=== PATIENT | male | born 1965 | race Caucasian/White ===

== ENCOUNTER → 2021-10-02 14:04 | Outpatient (CLI) | payer BC, SELFPAY ==
--- NOTE | ~2021-10-02 | CT_ITS ---
EXAMINATION: CT abdomen pelvis wo con DATE: 10/02/2021 14:26 INDICATION: Incisional hernia without obstruction without gangrene. TECHNIQUE: Computed tomography (CT) of the abdomen and pelvis was performed without intravenous contr ast. Automated exposure control and iterative reconstruction technique were employed. The dose-length product was 1160.10 mGy-cm. COMPARISON: CT abdomen 02/07/2009 FINDINGS: The visualized portions of the lung bases demonstrate mild atelectasis. No pleural effusion . A calcified left lung nodule is consistent with old granulomatous disease. The heart size is normal . No pericardial effusion. There are changes of fundoplication of the stomach with the wrap above the diaphragm. The liver, gallbladder, spleen, pancreas, and adrenal glands are normal. There are cysts in right kidney including peripelvic cysts measuring up to 4.9 cm. There is severe atrophy of left ki dney. There is severe left hydronephrosis with transition point at the ureteropelvic junction. There are no dilated loops of bowel. The appendix is normal. There are changes of mesh ventral hernia repai r. There is trace fluid adjacent to the mesh. There is a 2.4 x 1.5 cm subcutaneous fluid collection i n the right abdomen superior to the umbilicus, likely a seroma. There are no pathologically enlarged lymph nodes. There is no free intraperitoneal fluid. There are bilateral inguinal hernias containing fat. There are benign bone islands in the pelvis. There is mild thoracolumbar spondylosis. There is m ild chronic anterior wedging of multiple vertebral bodies. IMPRESSION: 1. Changes of fundoplication of the stomach with the wrap above the diaphragm. 2. Bilateral inguinal hernias containing fat. Reviewed, dictated and finalized at location A. TING CODER
== END ==
PROVIDERS: PCP Family Medicine; Visit Provider Surgery
DX: K43.0 Incisional hernia with obstruction, without gangrene (principal); K40.20 Bilateral inguinal hernia, without obstruction or gangrene, not specified as recurrent
CPT/HCPCS: 74176

== ENCOUNTER 2021-11-13 14:48 | Outpatient (CLI) | payer BC, SELFPAY ==
--- NOTE | ~2021-11-13 | MR_ITS ---
EXAMINATION: MR foot LT wo con DATE: 11/13/2021 15:53 INDICATION: Left foot pain. TECHNIQUE: Magnetic resonance imaging (MRI) of the left foot was performed without intravenous contra st. Sequences included sagittal T1-weighted FSE and STIR FSE, long-axis PD-weighted FS FSE and PD-winnie ghted FSE, and short-axis PD-weighted FS FSE and T1-weighted FSE. COMPARISON: None FINDINGS: Bone alignment is normal. No fracture. There is edema-like marrow signal intensity in base of fifth metatarsal, consistent with stress reaction. A skin marker overlies this area. There is mild osteoarthritis of many joints in the midfoot and hindfoot. There is severe osteoarthritis of medial naviculocuneiform joint and moderate osteoarthritis of talonavicular joint and second tarsometatarsal joint. There is thickening of the central band of the plantar fascia with an enthesophyte at the kaylynn caneal attachment, consistent with fasciitis. There is no joint effusion. There are changes of prior lateral ankle sprain including partial tear of the anterior talofibular ligament. There is increased signal in distal peroneus brevis tendon, consistent with tendinopathy. There is subcutaneous edema gandhi perficial to the peroneal tendons near the lateral malleolus. The medial and anterior ankle tendons a re normal. The muscle bellies are normal. IMPRESSION: 1. Stress reaction involving base of fifth metatarsal. Distal peroneus brevis tendinopathy. 2. Polyarticular osteoarthritis. 3. Plantar fasciitis. Reviewed, dictated and finalized at location B. [employer]ACILITY EXAMINER IMPRESSION: 1. Stress reaction involving base of fifth metatarsal. Distal peroneus brevis t endinopathy. 2. Polyarticular osteoarthritis. 3. Plantar fasciitis.
== END 2021-11-13 14:49 | disposition home or self-care (01) ==
PROVIDERS: PCP Family Medicine; Visit Provider Pediatrics
DX: M72.2 Plantar fascial fibromatosis (principal); M19.072 Primary osteoarthritis, left ankle and foot
CPT/HCPCS: 73718

== ENCOUNTER → 2022-01-10 00:28 | Outpatient (CLI) | payer BC, SELFPAY ==
[2022-01-10 11:14] LABS: SARS-CoV-2 RNA PCR Negative
== END ==
PROVIDERS: PCP Family Medicine; Visit Provider Surgery
DX: Z01.812 Encounter for preprocedural laboratory examination (principal); Z20.822 Contact with and (suspected) exposure to COVID-19
CPT/HCPCS: C9803; U0003; U0005

== ENCOUNTER 2022-01-10 10:23 | Outpatient (CLI) | payer BC, SELFPAY ==
[2022-01-10 11:10] LABS: Anion Gap 10 mmol/L (8-16); Blood Urea Nitrogen 30 mg/dL (9-20); Calcium 8.6 mg/dL (8.4-10.2); Carbon Dioxide 22 mmol/L (22-30); Chloride 104 mmol/L (98-107); Estimated Glomerular Filt Rate 57; Glucose 331 mg/dL (65-110); Potassium 4.2 mmol/L (3.4-5.0); Sodium 136 mmol/L (137-145)
== END 2022-01-10 10:24 | disposition home or self-care (01) ==
LOC: ANHSURGERY 10:26
PROVIDERS: Anesthesiology; PCP Family Medicine; Visit Provider Surgery
DX: E11.9 Type 2 diabetes mellitus without complications (principal); Z01.818 Encounter for other preprocedural examination
CPT/HCPCS: 36415; 80048

== ENCOUNTER 2022-01-12 02:31 | Day surgery (SDC) | payer BC, SELFPAY ==
[2022-01-09 12:19] VITALS: BMI 34.2
--- NOTE | 2022-01-09 12:27 | PC.NURSE ---
Report to the Outpatient Waiting Room, entrance under the green pavilion located off [facility], at time 6:00 on date 01/12/22. OR Time: 7:30. - You and your visitor will be asked a series of questions to screen for COVID 19 for your protection. - A mask is required within the hospital. One visitor will be allowed to accompany the patient into the hospital. Patients visitor will be instructed to remain with patient at all times or leave the building. We will allow the visitor to come back to the postoperative area when patient is ready. Preoperative COVID Testing Requirements: COVID TEST 01/10 AT 8:30 No COVID Test needed if: (proof is required; if not received patient will have Rapid Test prior to entry) - Patient has received COVID Vaccine at least 14 days prior to procedure date or - Patient has positive COVID test result within last 90 days of surgery date. COVID Test needed if above criteria is not met If not COVID vaccinated a COVID test must be conducted within 72 hours of surgery and patient is asked to isolate self from time of testing until procedure. You will go to the [facility] for your COVID testing. The [facility] site is located at the corner of [address] [facility]. You will only be called if COVID results are positive and your surgeon may reschedule your elective surgery date. Patients may have clear liquids (water, carbonated beverages, clear teas, apple juice) until 3 hours prior to surgery (4:30) with a maximum of 20 ounces. - No food from midnight until time of surgery Take the following medications with a SIP of water the morning of surgery: NONE Medications to discontinue per physician: N/A Date to take last dose: N/A Please no make-up, nail vietnamese, hairspray, perfume, deodorant, or body powder the day of surgery. No jewelry (including any body piercings) or valuables the day of surgery, leave them at home. Please take a shower or bath the night before, or the morning of, surgery with an antibacterial soap. Wear comfortable, loose fitting clothing. - Jewelry must be removed prior to entering the operating room. Rings and piercings that are not removed may be cut off. - The hospital will not accept responsibility for valuables. - Please leave all valuables, including medications, at home the day of surgery. If you are going home after surgery, a licensed regional company flatbed truck driver must drive you home. - NO public transportation without another adult. - We recommend that an adult stay with you for 24 hours following discharge. - We also recommend that you do not drive, make important decision, drink alcoholic beverages, or take any drugs that were not prescribed by your health care provider for at least 24 hours after your discharge time. Follow any additional instructions given to you from your surgeon. Telephone instructions given to BARBARA KING and asked if any additional questions and then verbalized understanding. Patient advised to call surgeon office or pre surgery nurse liaison [phone] if any additional questions.
--- NOTE | 2022-01-11 13:14 | WPDANESEPPF ---
Anes - Initial Pre Proc Eval Procedure: Operation Date: 01/12/22 10:00 Proposed Procedures p Excision of Skin Cyst Left Elbow - Dov Eaton MD Date/Time: 01/11/22 13:14 Surgeon: Dov Eaton MD Pre Op Diagnosis: skin cyst left elbow Patient Data Age: 56 Gender: M Height: 1.85 m Weight: 117.93 kg Allergies Allergy/AdvReac Type Severity Reaction Status Date / Time ibuprofen Allergy Intermediate Swelling, Verified 01/12/22 08:16 Hives Home Medications Medication Instructions Recorded Confirmed Type atorvastatin 40 mg tablet 40 mg PO HS 09/12/21 01/12/22 History dapagliflozin 5 mg tablet 5 mg PO HS 09/12/21 01/12/22 History lisinopril 10 mg tablet 10 mg PO HS 09/12/21 01/12/22 History semaglutide 14 mg tablet 14 mg PO DAILY 09/12/21 01/12/22 History Patient hx anesthesia problems: none Family hx anesthesia problems: none Results Review: All pre-operative results and documents have been reviewed as part of the pre-operative evaluation. [facility] Past Medical History Medical History (Updated 01/11/22 @ 13:14 by Hansel Victoria DO) Diabetes High cholesterol Hypertension MILVIA (obstructive sleep apnea) Surgical History Surgical History H/O colonoscopy H/O hernia repair Hiatal H/O shoulder surgery Family History Family History Father Family history of diabetes mellitus in first degree relative Family history of heart disease in male family member before age 55 Mother Family history of diabetes mellitus in first degree relative Family history of heart disease in male family member before age 55 Social History Social History Smoking status: Never smoker Alcohol intake: current Drinks per week: 5 Substance use: never Substance use type: does not use Living arrangements: with family Additional occupation/education comments: [employer] Gender identity (if verbalized by the patient): Male Spiritual care concerns: No Anes - Eval Final PreProcedure Day of Procedure 01/11/22 13:14 Patient weight: obese Heart: regular rate and rhythm Lungs: clear to auscultation and normal air movement Airway: Mallampati scale class II Neurological: alert and oriented Last oral intake: >/= 8 hours ASA classification: III Emergent: no Anesthetic plan: proceed Anesthesia type and monitoring: general GIVS and standard monitoring Results Review: All pre-operative results and documents have been reviewed as part of the pre-operative evaluation. Informed Consent: The patient's anesthetic plan and its attendant risks and benefits were discussed with the patient/family/POA. Questions were solicited and answers provided to the satisfaction of the patient/family/POA.
[2022-01-12] MEDS: LACTATED RINGERS 1,000 ML 30 ML IV CONT (08:39)
[2022-01-12 08:43] VITALS: BP 128/77; PULSE 60; RESP 16; TEMP 36.6; O2SAT 97
[2022-01-12 08:44] LABS: Glucose Point of Care 185 mg/dl (65-105)
--- NOTE | 2022-01-12 09:59 | WPDHPUPDATE1 ---
History and Physical Update Update Date/Time: 01/12/22 09:59 History and Physical has been reviewed, including an updated exam of the patient. There are NO changes in the patient's condition. Risks, benefits, and alternatives have been discussed and questions answered. Patient agrees to proceed with procedure.
[2022-01-12] MEDS: BUPIVACAINE/EPINEPHRINE 0.25% 50 ML VIAL 20 ML INFILTRATE (10:28)
[2022-01-12 10:50] VITALS: BP 96/57; PULSE 60; RESP 16; O2SAT 95
--- NOTE | 2022-01-12 11:01 | W.PM.PROC2 ---
Procedure Note - Detailed Date of Procedure 01/12/22 Pre-op Diagnosis skin cyst left elbow Post-op Diagnosis Same Procedure Performed Excision 1.5 cm cyst of left forearm with 1 mm margins, 1.7 cm excision. Layered 5 cm closure. Surgeon Dov Eaton MD Operating Engineer Nickolas RICKS Anesthesia MAC and Local (0.25% Marcaine with epinephrine) Indications Patient has a subcutaneous nodule consistent with a skin cyst on his left forearm very close to his elbow. It is on the dorsal aspect of the arm. It has been symptomatic particularly problematic when he bumps the arm. He is taken to surgery now for excision. Findings Consistent with skin cyst. Cyst was not entered. Description of Procedure Patient was checked in the preoperative holding area. The proposed transversely oriented excision or ellipse was drawn on the skin. He was then taken to surgery. The left forearm elbow and distal portion of the upper arm were prepped and draped so they were mobile in the field. Local was infiltrated in the area over the anticipated incision. Incision was then made creating a 5 cm ellipse that excised the lesion with 1 mm margins. The lesion was removed completely including the overlying skin and some of the subcutaneous. It was sent to pathology in formalin. There was no bleeding. The wound was closed in layers with interrupted 3-0 Vicryl subcutaneous and subcuticular suture. 4-0 Vicryl subcuticular suture we were placed in interrupted fashion as well. The skin was closed with a running 4-0 Monocryl skin suture. The wound was dressed with Exofin surgical adhesive. The patient was awakened and taken to outpatient recovery in good condition. Sponge and needle counts were correct x2. Estimated Blood Loss -1 Drains No Packing No Pathology Yes (Subcutaneous nodule left forearm) Complications No immediate complications Condition Stable Disposition Same day
[2022-01-12 11:21] VITALS: BP 123/74
[2022-01-12 11:50] VITALS: BP 108/73; PULSE 55
== END 2022-01-12 11:58 | disposition home or self-care (01) ==
PROVIDERS: PCP Family Medicine; Visit Provider Surgery
PROC: (CPT 11402; principal; 2022-01-12 10:00)
DX: L72.0 Epidermal cyst (principal); E11.9 Type 2 diabetes mellitus without complications; I10 Essential (primary) hypertension; E78.00 Pure hypercholesterolemia, unspecified; G47.33 Obstructive sleep apnea (adult) (pediatric); Z79.84 Long term (current) use of oral hypoglycemic drugs; E66.9 Obesity, unspecified; Z68.35 Body mass index [BMI] 35.0-35.9, adult
CPT/HCPCS: 11402; 12032; 82948; 88304; 88305; J1100; J2250; J2405; J2704; J3010; J7120